=== PATIENT | female | born 1940 | race African-American/Black ===

== ENCOUNTER 2020-04-09 21:27 | Emergency (ER) | payer OTHER ==
[~2020-04-09] VITALS: Ht 154.9 cm; Wt 60.0 kg
[2020-04-09 22:25] VITALS: BP 116/70
== END 2020-04-09 23:30 | disposition left against medical advice (07) ==
LOC: ER 21:27
DX: R55 Syncope and collapse (principal); Z53.21 Procedure and treatment not carried out due to patient leaving prior to being seen by health care provider

== ENCOUNTER 2024-08-16 16:39 | Emergency (ER) | payer OTHER ==
[~2024-08-16] VITALS: Ht 162.6 cm; Wt 56.0 kg
[2024-08-16 16:41] VITALS: O2SAT 96
[2024-08-16 18:26] LABS: BASOPHILS % 0.5 % (0.0-2.0); EOSINOPHILS % 0.8 % (0.0-5.0); HEMOGLOBIN. 10.4 g/dL (12.0-16.0); LYMPHOCYTES % 15.3 % (20.0-50.0); MEAN CORPUSCULAR HEMOGLOBIN 32.8 pg (28.0-32.0); MEAN CORPUSCULAR HGB CONC 33.5 g/dL (31.0-37.0); MEAN CORPUSCULAR VOLUME 97.8 fL (81.0-99.0); MEAN PLATELET VOLUME 7.7 fl (7.4-10.4); MONOCYTES % 5.5 % (2.0-8.0); NEUTROPHILS % 77.9 % (40.0-76.0); PLATELET 212 x1000/uL (130-400); RED BLOOD CELL COUNT 3.17 mill/uL (4.2-5.4); RED CELL DISTRIBUTION WIDTH 14.4 % (11.6-14.6); WHITE BLOOD COUNT 4.7 x1000/uL (4.5-11.0)
[2024-08-16 18:29] LABS: CHLORIDE 103 mEq/L (98-107); POTASSIUM 4.2 mEq/L (3.5-5.1); SODIUM 137 mEq/L (136-145)
[2024-08-16 18:30] LABS: CARBON DIOXIDE 29 mEq/L (21-32)
[2024-08-16 18:31] LABS: CALCIUM 10.1 mg/dL (8.7-10.4)
[2024-08-16 18:35] LABS: CREATININE 1.6 mg/dL (0.6-1.0); GLUCOSE 227 mg/dL (70-105)
[2024-08-16 18:36] LABS: UREA NITROGEN BLOOD 21 mg/dL (9-23)
[2024-08-16 18:38] LABS: TROPONIN I HIGH SENSITIVITY 14 ng/L (3.0-34)
[2024-08-16 18:50] LABS: PROTHROMBIN TIME 11.1 sec (9.6-11.0)
[2024-08-17] MEDS: SODIUM CHLORIDE 0.9% 1,000 ML IV ONE (00:30)
[2024-08-17 01:02] LABS: TROPONIN I HIGH SENSITIVITY 30 ng/L (3.0-34)
[2024-08-17 03:13] VITALS: BP 152/57; PULSE 79; RESP 13; TEMP 37.05852; O2SAT 96
== END 2024-08-17 03:28 | disposition short-term general hospital (02) ==
LOC: ER 16:39 → EDBEDREQ 16:50 → ER 08-17 03:28
DX: R55 Syncope and collapse (principal); E11.9 Type 2 diabetes mellitus without complications; I10 Essential (primary) hypertension; Z88.0 Allergy status to penicillin; Z86.73 Personal history of transient ischemic attack (TIA), and cerebral infarction without residual deficits
CPT/HCPCS: 99285; 70450; 71045; 80048; 83880; 85025; 85610; 84484; 36415; 93005; 96360; 96361; J7030

== ENCOUNTER 2025-01-24 21:10 | Emergency (ER) | payer OTHER ==
[~2025-01-24] VITALS: Ht 157.5 cm; Wt 53.0 kg
[2025-01-24 21:19] VITALS: O2SAT 98
[2025-01-24 21:44] LABS: BASOPHILS % 1.4 % (0.0-2.0); HEMATOCRIT. 34.7 % (36.0-48.0); HEMOGLOBIN. 11.4 g/dL (12.0-16.0); LYMPHOCYTES % 38.9 % (20.0-50.0); MEAN CORPUSCULAR HEMOGLOBIN 31.8 pg (28.0-32.0); MEAN CORPUSCULAR HGB CONC 32.9 g/dL (31.0-37.0); MEAN CORPUSCULAR VOLUME 96.6 fL (81.0-99.0); MEAN PLATELET VOLUME 8.3 fl (7.4-10.4); MONOCYTES % 7.6 % (2.0-8.0); NEUTROPHILS % 49.1 % (40.0-76.0); PLATELET 177 x1000/uL (130-400); RED CELL DISTRIBUTION WIDTH 13.4 % (11.6-14.6); WHITE BLOOD COUNT 5.1 x1000/uL (4.5-11.0)
[2025-01-24 21:59] LABS: CHLORIDE 103 mEq/L (98-107); POTASSIUM 4.6 mEq/L (3.5-5.1); SODIUM 143 mEq/L (136-145)
[2025-01-24 22:00] LABS: CALCIUM 9.9 mg/dL (8.7-10.4); CARBON DIOXIDE 32 mEq/L (21-32)
[2025-01-24 22:05] LABS: CREATININE 1.4 mg/dL (0.6-1.0); GLUCOSE 134 mg/dL (70-105); UREA NITROGEN BLOOD 23 mg/dL (9-23)
[2025-01-24 22:07] LABS: ALANINE AMINOTRANSFERASE 52 IU/L (10-49); ALBUMIN 4.3 g/dL (3.2-4.8); ASPARTATE AMINOTRANSFERASE 41 IU/L (<34); BILIRUBIN TOTAL 0.2 mg/dL (0.1-1.0); PROTEIN TOTAL 7.5 g/dL (6.0-8.3)
[2025-01-24 22:09] LABS: BILIRUBIN DIRECT < 0.1 mg/dL (<=3.0)
[2025-01-24 22:28] LABS: CLARITY URINE CLEAR (CLEAR); COLOR URINE YELLOW (YELLOW); GLUCOSE URINE NEGATIVE (NEGATIVE); KETONES URINE NEGATIVE (NEGATIVE); LEUKOCYTE ESTERASE URINE 2+ (NEGATIVE); NITRITE URINE POSITIVE (NEGATIVE); OCCULT BLOOD URINE 3+ (NEGATIVE); PROTEIN URINE TRACE (NEGATIVE); SPECIFIC GRAVITY URINE 1.012 (1.005-1.030); UROBILINOGEN URINE 0.2 E.U./dL (0.2-1.0)
[2025-01-24 22:39] LABS: BACTERIA URINE 2+; SQUAMOUS EPITHELIAL CELL URINE 1+ /lpf (RARE/1+)
[2025-01-24 23:40] VITALS: TEMP 36.8
[2025-01-24] MEDS: HYDRALAZINE 20MG/ML VIAL IV ONE (23:41)
[2025-01-25] MEDS ORDERED: ONDANSETRON HCL 4MG/2ML INJ IV PRN (00:30)
[2025-01-25] MEDS ORDERED: MAGNESIUM/ALUMINUM HYDROXIDE/SIMETHICONE 30ML UDC PO PRN (00:30)
[2025-01-25] MEDS ORDERED: CLONIDINE 0.1MG TABLET PO PRN (00:30)
[2025-01-25] MEDS ORDERED: DEXTROSE 50% WATER 50ML SYRINGE IV PRN (00:30)
[2025-01-25] MEDS ORDERED: NA PHOS,M-B/NA PHOS,DI-BA ENEMA 118ML PR PRN (00:30)
[2025-01-25] MEDS ORDERED: GUAIFENESIN 200MG/10ML SUGAR FREE UDC PO PRN (00:30)
[2025-01-25] MEDS ORDERED: IPRATROPIUM/ALBUTEROL 0.5-3(2.5)MG/3ML NEB HHN PRN (00:30)
[2025-01-25] MEDS ORDERED: DOCUSATE SODIUM 100MG CAPSULE PO PRN (00:30)
[2025-01-25] MEDS: CEFTRIAXONE 1GM/50ML 50 ML IV ONE (00:58)
[2025-01-25 01:31] VITALS: BP 163/59; PULSE 75; RESP 15; O2SAT 99
[2025-01-25] MEDS ORDERED: INSULIN LISPRO 100 UNITS/ML SUBCUT SCH (08:20)
[2025-01-25] MEDS ORDERED: BLOOD SUGAR DIAGNOSTIC STRIP TEST SCH (09:00)
== END 2025-01-25 01:57 | disposition short-term general hospital (02) ==
LOC: ER 21:10
DX: N39.0 Urinary tract infection, site not specified (principal); E11.22 Type 2 diabetes mellitus with diabetic chronic kidney disease; I12.9 Hypertensive chronic kidney disease with stage 1 through stage 4 chronic kidney disease, or unspecified chronic kidney disease; N18.4 Chronic kidney disease, stage 4 (severe); D64.9 Anemia, unspecified; Z88.0 Allergy status to penicillin
CPT/HCPCS: 99285; 74176; 96375; 80076; 80048; 81003; 83690; 85025; 36415; 96365; J0360; J0696